=== PATIENT | female | born 1965 | race Caucasian/White ===

== ENCOUNTER 2017-12-15 20:37 | Emergency (ER) | payer BC ==
[2017-12-15 21:45] LABS: Absolute Lymphocytes (CBC) 3.8 K/uL (0.7-4.9); Absolute Neutrophil 5.4 K/uL (1.8-8.0); Basophils % 0.8 % (0-1.3); Eosinophils % 1.5 % (0-4.4); Hematocrit 38.7 % (36.0-45.0); Lymphocytes % 36.6 % (15.3-44.8); MCH 31.2 pg (27.0-35.0); MCV 91.6 fL (80-100); Monocytes % 9.8 % (3.3-12.3); RBC Red Blood Cell Count 4.22 M/uL (3.86-4.86)
[2017-12-15] MEDS ORDERED: KETOROLAC 30 MG/ML INJ ONE (21:49)
[2017-12-15] MEDS ORDERED: NA CHLORIDE 0.9% 1,000 ML ONE (21:49)
[2017-12-15 22:04] LABS: ALT/SGPT 44 U/L (12-78); AST/SGOT 30 U/L (15-37); Albumin 3.7 g/dL (3.4-5.0); Alkaline Phosphatase 97 U/L (45-117); BUN Blood Urea Nitrogen 19 mg/dL (7-18); Bicarbonate 28 mmol/L (21-32); Bilirubin Direct < 0.1 mg/dL (0-0.2); Bilirubin Total 0.2 mg/dL (0.2-1.0); Glucose Level 86 mg/dL (74-106); Lipase 308 U/L (73-393); Protein, Total 7.5 g/dL (6.4-8.2); Sodium Level 141 mmol/L (136-145)
--- NOTE | 2017-12-15 22:14 | RAD REPORT ---
EXAM DESCRIPTION: CT - Stone Protocol - 12/15/2017 9:37 pm CLINICAL HISTORY: Left-sided flank and back pain COMPARISON: None. TECHNIQUE: Axial 5 mm thick images were obtained without oral or IV contrast. The [id number] span s the entirety of the system including uppermost abdomen and lung bases. All CT scans are performed using dose optimization technique as appropriate and may include automated exposure control or mA/KV adjustment according to patient size. FINDINGS: No hydronephrosis is present and no obstructing ureteral calculi. No suspicious renal mass es. Isodense masses and pyelonephritis are not excluded on a stone protocol CT scan. No urinary bladd er suspicious finding. Phleboliths seen in the lower left pelvis. Imaged portions of the liver, spleen and pancreas show no suspicious findings on non-contrast imaging . No gallbladder or biliary tree abnormality identified. No significant adrenal finding. No suspicious bowel findings. Appendix is normal. Moderate stool volume in the colon. No active GI pr ocess seen. Uterus is absent. Ovaries are absent or atrophic. No adnexal abnormalities. No hernia, mass or bulky lymphadenopathy noted. No free air, free fluid or inflammatory stranding. No significant bony abnormality. IMPRESSION: Noncontrast CT abdomen and pelvis study shows no significant or suspicious finding. Isodense masses and pyelonephritis are not excluded on stone protocol technique.
--- NOTE | 2017-12-15 22:20 | EDPHYS ---
Physician Documentation [facility] Name: Leonela Roberts Age: 52 yrs Sex: Female : 1965 Arrival Date: 12/15/2017 Time: 20:39 Bed 24 Private MD: ED Physician Leonard Godinez HPI: 12/15 22:00 This 52 yrs old Female presents to ER via Wheelchair with complaints of Low pm1 back pain. 22:00 The patient presents with pain that is acute, and spasm. The symptoms are located in pm1 the right low back. The pain does not radiate. The problem was sustained when bending over. Onset: The symptoms/episode began/occurred just prior to arrival, today. Modifying factors: The patient symptoms are alleviated by nothing, the patient symptoms are aggravated by movement. Associated signs and symptoms: Pertinent negatives: abdominal pain, chest pain, dysuria, fever, nausea, numbness, tingling, vomiting. Severity of symptoms: in the emergency department the symptoms are actually worse. The patient has experienced similar episodes in the past, several times. The patient has not recently seen a physician. 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 - Social history:: Smoking status: Patient/guardian denies using tobacco. - Ebola Screening: : No symptoms or risks identified at this time. ROS: 22:00 Constitutional: Negative for fever, chills, and weight loss, Eyes: Negative for injury, pm1 pain, redness, and discharge, ENT: Negative for injury, pain, and discharge, Neck: Negative for injury, pain, and swelling, Cardiovascular: Negative for chest pain, palpitations, and edema, Respiratory: Negative for shortness of breath, cough, wheezing, and pleuritic chest pain, Abdomen/GI: Negative for abdominal pain, nausea, vomiting, diarrhea, and constipation. 22:00 : Negative for injury, bleeding, discharge, and swelling, MS/Extremity: Negative for injury and deformity, Skin: Negative for injury, rash, and discoloration, Neuro: Negative for headache, weakness, numbness, tingling, and seizure. 22:00 Back: Positive for of the right low back. Exam: 22:00 Constitutional: This is a well developed, well nourished patient who is awake, alert, pm1 and in no acute distress. Head/Face: Normocephalic, atraumatic. Eyes: Pupils equal round and reactive to light, extra-ocular motions intact. Lids and lashes normal. Conjunctiva and sclera are non-icteric and not injected. Cornea within normal limits. Periorbital areas with no swelling, redness, or edema. ENT: Nares patent. No nasal discharge, no septal abnormalities noted. Tympanic membranes are normal and external auditory canals are clear. Oropharynx with no redness, swelling, or masses, exudates, or evidence of obstruction, uvula midline. Mucous membranes moist. Neck: Trachea midline, no thyromegaly or masses palpated, and no cervical lymphadenopathy. Supple, full range of motion without nuchal rigidity, or vertebral point tenderness. No Meningismus. Chest/axilla: Normal chest wall appearance and motion. Nontender with no deformity. No lesions are appreciated. Cardiovascular: Regular rate and rhythm with a normal S1 and S2. No gallops, murmurs, or rubs. Normal PMI, no JVD. No pulse deficits. Respiratory: Lungs have equal breath sounds bilaterally, clear to auscultation and percussion. No rales, rhonchi or wheezes noted. No increased work of breathing, no retractions or nasal flaring. Abdomen/GI: Soft, non-tender, with normal bowel sounds. No distension or tympany. No guarding or rebound. No evidence of tenderness throughout. 22:00 Skin: Warm, dry with normal turgor. Normal color with no rashes, no lesions, and no evidence of cellulitis. MS/ Extremity: Pulses equal, no cyanosis. Neurovascular intact. Full, normal range of motion. 22:00 Back: pain, that is moderate, of the right low back, normal spinal alignment noted, vertebral tenderness, is not appreciated. 22:00 Neuro: Orientation: is normal, Mentation: is normal, Motor: is normal, moves all fours, Sensation: is normal, no obvious gross deficits. Vital Signs: 20:48 BP 145 / 70; Pulse 76; Resp 18; Temp 98.3(TE); Pulse Ox 99% on R/A; Weight 72.57 kg; lp1 Height 5 ft. 3 in. (160.02 cm); Pain 10/10; 23:00 BP 123 / 67; Pulse 74; Resp 18; Pulse Ox 99% on R/A; kr2 20:48 Body Mass Index 28.34 (72.57 kg, 160.02 cm) lp1 MDM: 21:12 Patient medically screened. pm1 22:15 ED course: Patient comfortable lying in bed. Toradol effective for patient's pain. pm1 22:16 Data reviewed: vital signs. Data interpreted: Pulse oximetry: on room air is 99 %. pm1 Interpretation: normal. Counseling: I had a detailed discussion with the patient and/or guardian regarding: the historical points, exam findings, and any diagnostic results supporting the discharge/admit diagnosis, lab results, radiology results, the need for outpatient follow up, to return to the emergency department if symptoms worsen or persist or if there are any questions or concerns that arise at home. 12/15 21:21 Order name: Basic Metabolic Panel; Complete Time: 22:09 pm1 12/15 21:21 Order name: CBC with Diff; Complete Time: 22:09 pm1 12/15 21:21 Order name: Hepatic Function; Complete Time: 22:09 pm1 12/15 21:21 Order name: Lipase; Complete Time: 22:09 pm1 12/15 21:21 Order name: CT Stone Protocol; Complete Time: 22:15 pm1 12/15 23:04 Order name: Urine Dipstick--Ancillary (enter results) ms 12/15 21:21 Order name: IV Saline Lock; Complete Time: 21:48 pm1 12/15 21:21 Order name: Labs collected and sent; Complete Time: 21:48 pm1 12/15 21: Order name: Urine Dipstick-Ancillary (obtain specimen); Complete Time: 23:04 pm1 Administered Medications: 21:48 Drug: TORadol 30 mg Route: IVP; Site: left antecubital; kr2 22:00 Follow up: Response: No adverse reaction; Pain is decreased kr2 21:48 Drug: NS 0.9% 1000 ml Route: IV; Rate: 1000 ml; Site: left antecubital; kr2 22:52 Follow up: Response: No adverse reaction; IV Status: Completed infusion kr2 22:52 Drug: Flexeril 10 mg Route: PO; kr2 23:04 Follow up: Response: Medication administered at discharge. kr2 22:53 Drug: [place] 10 mg-325 mg 1 tabs Route: PO; kr2 23:03 Follow up: Response: Medication administered at discharge. kr2 Disposition: 12/16 03:07 Co-signature as Attending Physician, Leonard Godinez MD I agree with the assessment and tw4 plan of care. Attestation: The patient's history, exam findings, diagnostics, and a summary of any interventions or procedures was reviewed in detail with Galen Eldridge NP. Disposition: 12/15/17 22:19 Discharged to Home. Impression: Low back pain. - Condition is Stable. - Discharge Instructions: Back Pain, Adult, Musculoskeletal Pain. - Prescriptions for Naprosyn 500 mg Oral Tablet - take 1 tablet by ORAL route 2 times per day take with food; 30 tablet. Cyclobenzaprine 10 mg Oral Tablet - take 1 tablet by ORAL route every 8 hours As needed; 30 tablet. - Medication Reconciliation Form, Thank You Letter, Antibiotic Education, Prescription Opioid Use, Work release form form. - Follow up: Emergency Department; When: As needed; Reason: Worsening of condition. Follow up: Private Physician; When: 2 - 3 days; Reason: Recheck today's complaints, Continuance of care, Re-evaluation by your physician. - Problem is new. - Symptoms have improved. Signatures: Dispatcher [employer] EDCT Maddie Richey RN RN lp1 Galen Eldridge NP SHRIMP PEELING MACHINE TENDER pm1 Liana Drummond RN RN kr2 Leonard Godinez MD MD tw4 Corrections: (The following items were deleted from the chart) 12/15 21:49 21:21 Urine Test ordered. pm1 kr2 23:15 22:19 12/15/2017 22:19 Discharged to Home. Impression: Low back pain. Condition is kr2 Stable. Forms are Medication Reconciliation Form, Thank You Letter, Antibiotic Education, Prescription Opioid Use. Follow up: Emergency Department; When: As needed; Reason: Worsening of condition. Follow up: Private Physician; When: 2 - 3 days; Reason: Recheck today's complaints, Continuance of care, Re-evaluation by your physician. Problem is new. Symptoms have improved. pm1
--- NOTE | 2017-12-15 22:20 | ER ---
Nurse's Notes [facility] Name: Leonela Roberts Age: 52 yrs Sex: Female : 1965 Arrival Date: 12/15/2017 Time: 20:39 Bed 24 Private MD: Diagnosis: Low back pain Presentation: 12/15 20:47 Presenting complaint: Patient states: Back spasm that started about 20 min ago; States lp1 pain primarily to left low back; Patient uncomfortable during triage, unable to tolerate any repositioning. Transition of care: patient was not received from another setting of care. Onset of symptoms was December 15, 2017 at 20:30. Risk Assessment: Do you want to hurt yourself or someone else? Patient reports no desire to harm self or others. Initial Sepsis Screen: Does the patient meet any 2 criteria? No. Patient's initial sepsis screen is negative. Does the patient have a suspected source of infection? No. Patient's initial sepsis screen is negative. Care prior to arrival: None. 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 - Social history:: Smoking status: Patient/guardian denies using tobacco. - Ebola Screening: : No symptoms or risks identified at this time. Screenin:49 Abuse screen: Denies threats or abuse. Denies injuries from another. Nutritional lp1 screening: No deficits noted. Tuberculosis screening: No symptoms or risk factors identified. Fall Risk None identified. Assessment: 21:10 General: Appears in no apparent distress. uncomfortable, well groomed, well developed, kr2 well nourished, Behavior is calm, cooperative, appropriate for age. Pain: Complains of pain in left low back and left mid back Pain currently is 10 out of 10 on a pain scale. Quality of pain is described as sharp, shooting, Is continuous, Alleviated by rest, Aggravated by increased activity, repositioning. Neuro: Level of Consciousness is awake, alert, obeys commands, Oriented to person, place, time, situation, Appropriate for age Corn Breeder are equal bilaterally Intact. Cardiovascular: Capillary refill < 3 seconds in bilateral fingers Patient's skin is warm and dry. Respiratory: Airway is patent Respiratory effort is even, unlabored, Respiratory pattern is regular, symmetrical. : Denies burning with urination. Derm: Skin is intact, is healthy with good turgor, Skin is pink, warm \T\ dry. Musculoskeletal: Circulation, motion, and sensation intact. Injury Description: Patient denies any recent injuries. 22:00 Reassessment: Patient appears in no apparent distress at this time. Patient and/or kr2 family updated on plan of care and expected duration. Pain level reassessed. 23:08 Reassessment: Patient appears in no apparent distress at this time. Patient and/or kr2 family updated on plan of care and expected duration. Pain level reassessed. Patient verbalized comfort when lying in bed and after administration of Toradol. Upon getting out of bed patient complained of return of spasm. Provider notified, medicated for pain as ordered. Patient assisted to comfortable position. Vital Signs: 20:48 BP 145 / 70; Pulse 76; Resp 18; Temp 98.3(TE); Pulse Ox 99% on R/A; Weight 72.57 kg; lp1 Height 5 ft. 3 in. (160.02 cm); Pain 10/10; 23:00 BP 123 / 67; Pulse 74; Resp 18; Pulse Ox 99% on R/A; kr2 20:48 Body Mass Index 28.34 (72.57 kg, 160.02 cm) lp1 ED Course: 20:39 Patient arrived in ED. es 20:48 Triage completed. lp1 20:48 Arm band placed on left wrist. lp1 21:00 Patient has correct armband on for positive identification. Bed in low position. Call kr2 light in reach. Side rails up X2. Adult w/ patient. Pulse ox on. NIBP on. Door closed. Warm blanket given. Head of bed lowered. 21:02 Galen Eldridge NP is PHCP. pm1 21:02 Leonard Godinez MD is Attending Physician. pm1 21:15 Inserted saline lock: 20 gauge in left antecubital area, using aseptic technique. kr2 ,using aseptic technique. Performed by MYA Vasquez Blood collected. 21:29 Hoda, Liana, RN is Primary Nurse. kr2 21:30 Patient moved to SC. 21:37 CT completed. Patient tolerated procedure well. Patient moved back from SC. wi 21:37 CT Stone Protocol In Process Unspecified. EDMS 23:12 No provider procedures requiring assistance completed. IV discontinued, intact, kr2 bleeding controlled, No redness/swelling at site. Pressure dressing applied. Administered Medications: 21:48 Drug: TORadol 30 mg Route: IVP; Site: left antecubital; kr2 22:00 Follow up: Response: No adverse reaction; Pain is decreased kr2 21:48 Drug: NS 0.9% 1000 ml Route: IV; Rate: 1000 ml; Site: left antecubital; kr2 22:52 Follow up: Response: No adverse reaction; IV Status: Completed infusion kr2 22:52 Drug: Flexeril 10 mg Route: PO; kr2 23:04 Follow up: Response: Medication administered at discharge. kr2 22:53 Drug: [place] 10 mg-325 mg 1 tabs Route: PO; kr2 23:03 Follow up: Response: Medication administered at discharge. kr2 Outcome: 22:19 Discharge ordered by MD. pm1 23:14 Discharged to home via wheelchair, with family. kr2 23:14 Condition: good 23:14 Discharge instructions given to patient, family, Instructed on discharge instructions, follow up and referral plans. medication usage, Demonstrated understanding of instructions, follow-up care, medications, Prescriptions given X 2. 23:15 Patient left the ED. kr2 Signatures: Dispatcher [employer] EDMS Pennie Pretty Susan sj Pena, Laura, RN RN lp1 Galen Eldridge NP FUR DRUMMER pm1 Baltazar Rizvi Karey, RN RN kr2 Corrections: (The following items were deleted from the chart) 23:14 21:50 Inserted saline lock: 20 gauge in left antecubital area, using aseptic technique. kr2 ,using aseptic technique. Performed by MYA Vasquez Blood collected. kr2
[2017-12-15] MEDS ORDERED: CYCLOBENZAPRINE 10 MG TAB ONE (22:47)
[2017-12-15] MEDS ORDERED: HYDROCODONE/APAP 10/325 TAB ONE (22:48)
[2017-12-15 23:31] LABS: Urine Blood NEGATIVE (NEG); Urine Glucose NEGATIVE (NEG); Urine Protein NEGATIVE (NEG)
== END 2017-12-15 23:15 | disposition home or self-care (01) ==
LOC: ER 20:37
DX: M54.5 Low back pain (principal)
CPT/HCPCS: 36415; 74176; 76377; 80048; 80076; 81003; 83690; 85025; 96361; 96374; 99284; J7030

== ENCOUNTER 2020-11-29 06:27 | Day surgery (SDC) | payer BC ==
[2020-11-22 11:31] LABS: Absolute Lymphocytes (CBC) 1.9 K/uL (0.7-4.9); Basophils % 0.7 % (0-1.3); Hematocrit 41.4 % (36.0-45.0); Lymphocytes % 28.1 % (15.3-44.8); MPV 7.3 fL (7.6-11.3); RBC Red Blood Cell Count 4.58 M/uL (3.86-4.86)
--- NOTE | 2020-11-22 12:13 | RAD REPORT ---
EXAM DESCRIPTION: Luis Enrique Villareal (2 Views)11/22/2020 12:07 pm CLINICAL HISTORY: Preop for toe surgery COMPARISON: 2012 FINDINGS: The lungs appear clear of acute infiltrate. The heart is normal size IMPRESSION: No acute abnormalities displayed
--- NOTE | 2020-11-28 15:11 | PREOPHP ---
Date of Admission: 11/29/2020 History Of Present Illness: This patient presented to my office with a chief complaint of recurrent abscesses at the base of the previously removed right big toenail 6 years ago. She has had recurrent abscesses and requests evaluation. After debridements in the office twice, the patient still has re current abscess formation 3 times in the last 5 weeks and recommendation is now for surgical debridem ent in the operating room. Previous cultures revealed MSSA. The last culture was negative for any g rowth of the skin brodie. The location is the right big toe, posterior nail border, painful, moderate in severity over 6 years' duration. Past Medical History: Includes varicose veins. Current Medications: None. Allergies: NONE. Social History: The patient is a former tobacco user. No history of alcohol use. Denies IV drug us e. Past Surgical History: Includes hysterectomy and toenail removal on the right big toe 6 years prior. Family History: Includes gout and cancer. Physical Examination: The patient is healthy, well developed, well nourished, well oriented x3. Vascular evaluation reveal s dorsalis pedis and posterior tibial pulses to be 4/4 bilaterally. Capillary refill time is 1 secon d. Temperature gradient is within normal limits. Musculoskeletal evaluation reveals normal range of motion equal and symmetrical on the foot bilaterally. Knees, ankle, and subtalar joint are all with in normal range of motion. Skin evaluation reveals no rash, ulcer, or tumors; however, there is a sm all abscess that has been seen on occasion at the posterior nail fold, medial aspect with pus express ed and cultured at different times. Neurologic evaluation reveals deep tendon reflexes of the patell a and Achilles to be within normal limits. Vibratory and sharp dull sensation within normal limits. Laboratory Data: X-ray evaluation shows no bone changes on repeated x-rays. Diagnosis: Cutaneous abscess, right foot. She has history of cellulitis to the right toe. The maykel ent has undergone superficial debridements in the office of the posterior fold on 2 separate occasion s, which did not remedy the issue. At this time, a deep debridement down to bone is recommended for any fibrosis or scar tissue or epidermal tissue that is causing irritation or nail root that may be r emaining causing irritation. The patient has been informed of COVID risk due to recent flare in delt a strain, made where it can cause complications and blood clots and an increased infection and debili tation. The patient has been dispensed postop shoe. The patient understands risks, benefits, and al ternatives of the above-mentioned procedure including, but not limited to the risk of pain, swelling, numbness, stiffness, scarring, infection, and recurrence of the abscess formation. The patient wish es to proceed with the deep debridement as all other conservative measures have failed. The patient has been instructed on use of a silk tie to keep the bandaging dry. The patient declines postop pain medication and cold therapy unit. The patient is scheduled for surgery at [facility] o n November 29, 2020. Preoperative labs have been performed. Medical H and P will be completed by [facility]. RANDEE/IMMANUEL Voice ID: [id number]
[2020-11-29] MEDS ORDERED: Ringers Lactate 1,000 ML IV ONE (06:52)
[2020-11-29] MEDS ORDERED: CEFAZOLIN/SWI 1gm 1 GM/10 ML SYR ONE (06:52)
[2020-11-29] MEDS ORDERED: BUPIVACAINE 0.5% PF 10 ML VIAL ONE ×2 (07:34→07:36)
[2020-11-29] MEDS ORDERED: LIDOCAINE 1% 20 ML MDV ONE (07:37)
[2020-11-29] MEDS ORDERED: dexAMETHasone 10 MG/ML VIAL ONE (07:44)
[2020-11-29] MEDS ORDERED: propofoL 200 MG/20 ML VIAL IV ONE (07:44)
[2020-11-29] MEDS ORDERED: MIDAZOLAM HCL 2 MG/2 ML INJ ONE (07:44)
[2020-11-29] MEDS ORDERED: FENTANYL CITR 100 MCG/2 ML ONE (07:44)
[2020-11-29] MEDS ORDERED: KETOROLAC 30 MG/ML INJ ONE (07:44)
[2020-11-29] MEDS ORDERED: ONDANSETRON 4 MG/2 ML VIAL ONE (07:44)
[2020-11-29] MEDS ORDERED: LIDOCAINE 1% MPF 30 ML VIAL ONE (07:45)
[2020-11-29 08:45] VITALS: BP 99/55; TEMP 97.4
--- NOTE | 2020-11-29 09:06 | DS ---
Date Of Surgery: 11/29/2020. Surgeon: Kris Abbott DPM. Preoperative Diagnosis: Recurrent abscess, posterior nail fold, right hallux. Postoperative Diagnosis: Recurrent abscess, posterior nail fold, right hallux. Procedure: Excision of nail root matrix. Hospital Course: Patient tolerated the procedure and anesthesia well. Will be sent home per Anesthe christos guidelines. Patient may resume normal diet and ambulation in postop shoe. Will be seen in [address] [place] [address] for postop followup. Patient has been given written postop instructions and emergency phone number . YASEMIN Voice ID: [id number] Report ID: [id number]
--- NOTE | 2020-11-29 09:06 | OP ---
Date of Procedure: 11/29/2020 Surgeon: Kris Abbott DPM Preoperative Diagnosis: Incision and drainage of recurrent infection, right hallux nail matrix area, status post procedure 6 years prior. Procedure: Excision of nail root matrix residual from prior procedure. Anesthesia: Local. Procedure In Detail: The patient was brought in to the operating room, placed on the operative room table in the supine position. Once adequate IV sedation was obtained, the patient was injected with a total of 3 cc of 0.5% Marcaine plain. The patient was prepped and draped in usual sterile manner. The right extremity was elevated to 60 degrees, took a period of 3 minutes to exsanguinate the blood supply. Pneumatic ankle tourniquet was elevated to 250 mmHg. Attention was then directed to the po sterior nail fold of the right hallux where there was a small pustule. This was incised approximatel y 8 mm proximal from the nail remaining from the nail bed through the posterior fold and then a flap incision was created with a medial connecting incision 5 mm in length. The flap was freed, fibrous d ebris was removed. A hard nail matrix with partial growth was removed and a rongeur was used to ismael n any remaining hard tissue of the bone. A curette was utilized. The area was flushed with copious amounts of sterile saline. Upon further inspection, no hard material was seen in the area. The area was closed with 4-0 Prolene simple suture. The area was dressed with Adaptic, dry sterile gauze, Kl ing, and Coban. Pneumatic ankle tourniquet was released and capillary return was seen to be instanta neous to all digits. The patient is to be seen in my office for postoperative care. The patient was sent to same-day surgery in satisfactory condition. RANDEE/IMMANUEL Voice ID: [id number] Report ID: [id number]
[2020-11-29 09:18] VITALS: O2SAT 99
== END 2020-11-29 09:15 | disposition home or self-care (01) ==
LOC: OR 06:27
PROVIDERS: ATTEND Podiatrist
PROC: 0HBRXZZ Excision of Toe Nail, External Approach (ICD-10-PCS; principal; 2020-11-29 07:30)
DX: L02.611 Cutaneous abscess of right foot (principal); Z20.822 Contact with and (suspected) exposure to COVID-19
CPT/HCPCS: 93005; 85025; 36415; 88304; 71046; 11750; U0003; J2704; J2250; J3010; J1100; J0690; J7120; J2405